=== PATIENT | female | born 1950 | race Caucasian/White ===

== ENCOUNTER 2024-01-01 10:50 | Day surgery (SDC) | payer MEDICARE, OTHER ==
[2023-12-28 10:10] LABS: BASOPHILS % (AUTO) 0.9 % (0-1); EOSINOPHILS # (AUTO) 0.2 X10'3 (0-0.9); EOSINOPHILS % (AUTO) 4.7 % (0-6); HEMATOCRIT 39.6 % (35.0-45.0); HEMOGLOBIN 13.5 g/dl (12.0-16.0); LYMPHOCYTES # (AUTO) 0.8 X10'3 (1.1-4.8); LYMPHOCYTES % (AUTO) 18.8 % (21-51); MEAN CORPUSCULAR HEMOGLOBIN 29.8 PG (27.0-31.0); MEAN CORPUSCULAR VOLUME 87.7 FL (78-98); MONOCYTES # (AUTO) 0.5 X10'3 (0-0.9); MONOCYTES % (AUTO) 11.7 % (2-12); NEUTROPHILS # (AUTO) 2.9 X10'3 (1.8-7.7); NEUTROPHILS % (AUTO) 63.9 % (42-75); PLATELET COUNT 175 X10'3 (140-440); RED BLOOD COUNT 4.52 X10'6 (4.20-5.60); RED CELL DISTRIBUTION WIDTH 15.1 % (11.5-14.5); WHITE BLOOD COUNT 4.5 X10'3 (4.5-11.0)
[2023-12-28 10:22] LABS: APTT 26 SECONDS (22-32); PROTHROMBIN TIME 10.8 SECONDS (9.0-12.0)
[2023-12-28 11:17] LABS: ALBUMIN 3.7 G/DL (3.4-5.0); ANION GAP 7 (8-16); BLOOD UREA NITROGEN 35 MG/DL (7-18); BUN/CREATININE RATIO 32.4 (10.0-20.0); CALCIUM 8.4 MG/DL (8.5-10.1); CHLORIDE 101 MMOL/L (99-107); CHOL/HDL RATIO 2.8 (0.00-4.99); CHOLESTEROL 152 MG/DL (0-200); CREATININE 1.08 MG/DL (0.40-0.90); GLUCOSE 97 MG/DL (70-104); HDL CHOLESTEROL 55 MG/DL (35-60); LDL CHOLESTEROL 71 MG/DL (50-100); POTASSIUM 4.4 MMOL/L (3.5-5.1); SODIUM 138 MMOL/L (135-145); TOTAL CARBON DIOXIDE 29.9 MMOL/L (24-32); TRIGLYCERIDES 129 MG/DL (20-135); eGFR 50 ML/MIN
[2024-01-01] VITALS (8 sets, daily range): BP systolic 91–103; BP diastolic 35–64; PULSE 62–87; RESP 16; TEMP 97.7; O2SAT 90–97
[~2024-01-01] VITALS: Ht 154.9 cm; Wt 62.7 kg
[2024-01-01] MEDS ORDERED: FURO20TA4 PO (11:21)
[2024-01-01] MEDS ORDERED: RAMI2.5C54 PO (11:21)
[2024-01-01] MEDS ORDERED: ATOR10TA70 PO (11:21)
[2024-01-01] MEDS ORDERED: OMEG10006 PO (11:21)
[2024-01-01] MEDS ORDERED: ASPI-611 PO (11:21)
[2024-01-01] MEDS ORDERED: CHOL500050 PO (11:21)
[2024-01-01] MEDS ORDERED: SPIR25TA5 PO (11:21)
[2024-01-01] MEDS ORDERED: LEVO75TA PO (11:21)
[2024-01-01] MEDS ORDERED: MULT-1085 PO (11:21)
[2024-01-01] MEDS ORDERED: METO-411 PO (11:21)
[2024-01-01] MEDS ORDERED: UMEC1DIS INH (11:21)
[2024-01-01] MEDS ORDERED: verapamil 2.5 mg/ml inj IV ONE (11:47)
[2024-01-01] MEDS ORDERED: LIDOcaine 1% (10mg/ml) 2ml vial ONE (11:47)
[2024-01-01] MEDS ORDERED: fentaNYL/PF 50MCG/1 ML 2ML syringe ONE (11:48)
[2024-01-01] MEDS ORDERED: iohexol 350MG/ML 100ml bottle IV ONE (11:48)
[2024-01-01] MEDS ORDERED: heparin 1,000unit/ml 10ml vial 10 ML ONE (11:48)
[2024-01-01] MEDS ORDERED: midazolam 1 mg/ML 2ml injection ONE (11:48)
[2024-01-01] MEDS: LORazepam 0.5 MG tablet PO PRN (11:51)
[2024-01-01] MEDS: diphenhydrAMINE 25mg capsule PO PRN (11:51)
[2024-01-01] MEDS: normal saline 1,000 ML IV SCH (11:52)
[2024-01-01] MEDS ORDERED: nitroGLYCERIN 500mcg/5mL D5W 5 ML IV ONE (12:17)
[2024-01-01] MEDS ORDERED: HYDROcodone/acetaminophen 10/325mg tab PO PRN (14:05)
[2024-01-01] MEDS ORDERED: HYDROcodone/acetaminophen 5mg/325mg tablet PO PRN (14:05)
== END 2024-01-01 15:45 | disposition home or self-care (01) ==
LOC: SSTAY O 10:50
PROVIDERS: ATTEND Student in an Organized Health Care Education/Training Program
DX: I50.22 Chronic systolic (congestive) heart failure (principal); E78.00 Pure hypercholesterolemia, unspecified; E03.9 Hypothyroidism, unspecified; J44.9 Chronic obstructive pulmonary disease, unspecified; G47.33 Obstructive sleep apnea (adult) (pediatric); Z85.3 Personal history of malignant neoplasm of breast; Z79.82 Long term (current) use of aspirin; Z79.890 Hormone replacement therapy; Z79.899 Other long term (current) drug therapy; Z88.0 Allergy status to penicillin
CPT/HCPCS: 36415; 80048; 80061; 85025; 85610; 85730; 93005; 93458; J1644; J2250; J3010; J3490; J7030; Q0163; Q9967; 99152; A6258; A6402; C1894